=== PATIENT | male | born 1985 | race Two or more races ===

== ENCOUNTER 2019-11-13 23:27 | Inpatient (IN) | payer MEDICAID, OTHER ==
[~2019-11-13] VITALS: Ht 165.1 cm; Wt 85.4 kg
[2019-11-14 00:19] LABS: Basophils # (auto) 0.1 10 ^3/uL (0-0.2); Basophils % (auto) 0.7 % (0.0-2.0); Eosinophils # (auto) 0 10 ^3/uL (0-0.8); Eosinophils % (auto) 0.1 % (0.0-7.0); Hematocrit 50.3 % (41.0-53.0); Hemoglobin 17.1 g/dL (13.5-17.5); Lymphocytes # (auto) 2.3 10 ^3/uL (0.4-5.4); Lymphocytes % (auto) 19.5 % (10.0-50.0); Mean Corpuscular Hemoglobin 30.3 pg (28.0-32.0); Mean Corpuscular Hgb Conc. 34.1 g/dL (32.0-36.0); Mean Corpuscular Volume 88.8 fL (80.0-100.0); Monocytes # (auto) 1.1 10 ^3/uL (0-1.3); Monocytes % (auto) 9.3 % (0.0-12.0); Neutrophils # (auto) 8.3 10 ^3/uL (1.6-8.6); Neutrophils % (auto) 70.4 % (37.0-80.0); Nucleated Red Blood Cells % 0.7 %; Platelet Count (auto) 424 10^3/uL (140-450); Red Blood Cells 5.66 10^6/uL (4.5-5.90); Red Cell Distribution Width 14.1 % (11.8-14.3); White Blood Cell 11.8 10^3/uL (4.4-10.8)
[2019-11-14 00:39] LABS: Albumin 4.4 g/dL (3.4-5.0); BUN/Creatinine Ratio 16.3; Calcium 9.6 mg/dL (8.5-10.1); Potassium 3.7 mmol/L (3.5-5.1)
[2019-11-14 00:44] LABS: Bilirubin, Total 0.8 mg/dL (0.2-1.0); Total Protein 8.8 g/dL (6.4-8.2)
[2019-11-14] MEDS ORDERED: SODIUM CHLORIDE 0.9% 1,000 ML IV ONE (01:00)
[2019-11-14] MEDS ORDERED: ONDANSETRON HCL 4 MG/2 ML VIAL IV ONE (01:00)
[2019-11-14] MEDS ORDERED: MORPHINE SULFATE 4 MG/ML SYR/VIAL IV ONE (01:00)
[2019-11-14] MEDS ORDERED: PANTOPRAZOLE 40 MG/10 ML VIAL INJ IV ONE (01:45)
[2019-11-14] MEDS ORDERED: metroNIDAZOLE 500MG/100ML 100 ML IV ONE (01:45)
[2019-11-14] MEDS ORDERED: cefTRIAXone 1GM/50ML D5W 50 ML IV ONE (01:45)
[2019-11-14] MEDS ORDERED: ACETAMINOPHEN 325 MG TAB PO PRN (02:30)
[2019-11-14] MEDS ORDERED: DOCUSATE SOD 100 MG CAP PO PRN (02:30)
[2019-11-14] MEDS ORDERED: ONDANSETRON HCL 4 MG/2 ML VIAL IV PRN (02:30)
[2019-11-14] MEDS ORDERED: HYDROcodone-ACET 5/325MG TAB PO PRN (02:30)
[2019-11-14] MEDS ORDERED: LORazepam 0.5 MG TAB PO PRN ×2 (02:30→13:45)
[2019-11-14] MEDS ORDERED: MORPHINE SULFATE 4 MG/ML SYR/VIAL IV PRN (02:30)
[2019-11-14] MEDS ORDERED: DEXTROSE (50%) 50ML SYRG IV PRN (02:30)
[2019-11-14 02:31] LABS: Urine Bacteria NONE SEEN /hpf (None Seen); Urine Blood Negative /uL (Negative); Urine Hyaline Cast FEW /lpf (0 - 2); Urine Mucus FEW (None Seen); Urine Specific Gravity 1.037 (1.001-1.035); Urine WBC 1 /hpf (0 - 3)
[2019-11-14 02:49] LABS: Alcohol, Urine < 3.0 mg/dL (0-5); Amphetamine Screen, Urine NEGATIVE (NEGATIVE); Barbiturate Scree,Urine NEGATIVE (NEGATIVE); Benzodiazephine Screen, Urine NEGATIVE (NEGATIVE); Cannabinoid Screen, Urine NEGATIVE (NEGATIVE); Cocaine Screen, Urine NEGATIVE (NEGATIVE); Opiate Scree,Urine NEGATIVE (NEGATIVE); Phencyclidine Screen, Urine NEGATIVE (NEGATIVE)
[2019-11-14] MEDS: InsuLIN REG 1unit/0.01ml Soln (100units/ml) SC SCH ×3 (04:00→11:52)
--- NOTE | 2019-11-14 04:00 | NUR ---
MS admit from ER LIAM GUZMAN admitted to tele/MS. Patient oriented to Radha Kirkland RN primary RN, unit, room, bed, and unit policies regarding patient care and visiting hours. Patient encouraged to call if they need something. Pt. hooked up to low intermittent NG suctioning. Pt. reports no pain and is no distress. Will continue to monitor.
[2019-11-14] MEDS: SODIUM CHLORIDE 0.9% 1,000 ML IV SCH ×3 (04:19→22:23)
[2019-11-14] MEDS: ACCU-CHEK COMFORT CURVE STRIP VI SCH ×3 (04:27→11:52)
[2019-11-14 04:31] VITALS: BP 128/82
[2019-11-14 04:51] VITALS: BP 128/82
--- NOTE | 2019-11-14 07:17 | NUR ---
Opening Shift Note: Assumed care of patient, awake and alert. No S/S of distress/SOB or pain. Patient NPO at this time. NG tube in place at this time, at 50. Low continuous suction. Bed in lowest locked position, side rails up x 2, call light within reach. Patient instructed on POC and to call for assist PRN, will continue to monitor for changes Q1hr and PRN.
[2019-11-14 09:00] VITALS: BP 119/78
[2019-11-14 09:07] LABS: Basophils # (auto) 0 10 ^3/uL (0-0.2); Basophils % (auto) 0.1 % (0.0-2.0); Eosinophils # (auto) 0 10 ^3/uL (0-0.8); Eosinophils % (auto) 0.3 % (0.0-7.0); Hematocrit 44.8 % (41.0-53.0); Hemoglobin 15.1 g/dL (13.5-17.5); Lymphocytes % (auto) 23.6 % (10.0-50.0); Mean Corpuscular Hemoglobin 30.3 pg (28.0-32.0); Mean Corpuscular Hgb Conc. 33.6 g/dL (32.0-36.0); Mean Corpuscular Volume 90.2 fL (80.0-100.0); Monocytes # (auto) 1.2 10 ^3/uL (0-1.3); Monocytes % (auto) 13.5 % (0.0-12.0); Neutrophils # (auto) 5.4 10 ^3/uL (1.6-8.6); Neutrophils % (auto) 62.5 % (37.0-80.0); Nucleated Red Blood Cells % 0.1 %; Platelet Count (auto) 378 10^3/uL (140-450); Red Blood Cells 4.97 10^6/uL (4.5-5.90); Red Cell Distribution Width 14.1 % (11.8-14.3); White Blood Cell 8.6 10^3/uL (4.4-10.8)
[2019-11-14 09:20] LABS: Calcium 8.2 mg/dL (8.5-10.1)
[2019-11-14 09:23] LABS: BUN/Creatinine Ratio 16.5
--- NOTE | 2019-11-14 11:49 | NUR ---
DR ANIL ohara at bedside
[2019-11-14 13:00] VITALS: BP 113/69
[2019-11-14] MEDS: metroNIDAZOLE 500MG/100ML 100 ML IV SCH ×2 (13:42→21:32)
--- NOTE | 2019-11-14 16:04 | NUR ---
Paged Dr. Boss at this time. Patient states "I don't want this tube in me anymore, take it out." Patient educated on need for NG tube at this time. Awaiting call back.
[2019-11-14 17:00] VITALS: BP 129/72
--- NOTE | 2019-11-14 18:38 | NUR ---
Educated patient on need for NG tube and NPO
--- NOTE | 2019-11-14 19:00 | NUR ---
NG tube output 750 ml
--- NOTE | 2019-11-14 19:00 | NUR ---
Opening note Assumed care of patient. Bed in lowest position and locked. Side rails up x 2. No SOB or distress noted. POC reviewed. Patient verbalized understanding. NG tube patent and draining @ LIS. Dark red and brown secretions. Will continue to monitor.
--- NOTE | 2019-11-14 19:03 | NUR ---
CLOSING NOTE: Patient resting in bed. No S/S of pain, distress, or SOB. Care endorsed to NOC RN.
[2019-11-14] MEDS ORDERED: LORazepam 2MG/ML-1ML VIAL IV PRN (19:45)
[2019-11-14 22:00] VITALS: BP 120/74
--- NOTE | 2019-11-15 04:46 | NUR ---
NG tube output Emptied out canister. 700 ml dark brown fluid.
[2019-11-15 05:00] VITALS: BP 119/68
[2019-11-15] MEDS: metroNIDAZOLE 500MG/100ML 100 ML IV SCH (05:17)
[2019-11-15 06:42] LABS: Albumin 3.6 g/dL (3.4-5.0); Calcium 8.5 mg/dL (8.5-10.1); Magnesium 2.4 mg/dL (1.6-2.6); Potassium 3.8 mmol/L (3.5-5.1)
[2019-11-15 06:48] LABS: BUN/Creatinine Ratio 18.3; Bilirubin, Total 0.9 mg/dL (0.2-1.0); Total Protein 7.1 g/dL (6.4-8.2)
--- NOTE | 2019-11-15 07:22 | NUR ---
Opening Shift Note: Assumed care of patient, awake and alert. No S/S of distress/SOB or pain. Patient NPO at this time. NG tube connected to suction, at 50, patient NPO at this time. Bed in lowest locked position, side rails up x 2, call light within reach. Patient instructed on POC and to call for assist PRN, will continue to monitor for changes Q1hr and PRN.
[2019-11-15] MEDS ORDERED: GASTROGRAFIN 120 ML SOL ONE ×2 (08:55→10:37)
[2019-11-15 09:29] VITALS: BP 112/78
[2019-11-15 09:32] LABS: INR 1.07 (0.9-1.15)
--- NOTE | 2019-11-15 10:50 | NUR ---
Patient off unit.
[2019-11-15 13:00] VITALS: BP 142/86
--- NOTE | 2019-11-15 14:00 | NUR ---
Spoke with Dr. Sherwood. Per Patient can have NG tube removed, and is stable.
--- NOTE | 2019-11-15 14:22 | NUR ---
NG tube removed. Patient tolerated well.
--- NOTE | 2019-11-15 14:32 | NUR ---
Nutrition Assessment Notes please see attached link for complete assessment Est. Needs ABW (73 kg): [address] kcal (23-25 kcal/kgBW), 73-80 gms pro (1.0-1.1 gms/kgBW). Will continue to monitor pertinent labs and reassess nutrient need prn Addendum: 11/15/19 at [address] Amended: Links added.
[2019-11-15] MEDS ORDERED: SODIUM CHLORIDE 0.9% 1,000 ML IV SCH (15:00)
--- NOTE | 2019-11-15 16:20 | NUR ---
Patient provided jello and juice. Patient tolerated well.
[2019-11-15 17:09] VITALS: BP 132/80
--- NOTE | 2019-11-15 18:02 | NUR ---
Diet advanced. Patient tolerated well. Will continue to monitor.
[2019-11-15 18:10] VITALS: BP 112/78
--- NOTE | 2019-11-15 21:20 | NUR ---
Discharge instructions given as ordered. Encourage to follow up with PMD as instructed. All questions and concerns addressed. Patient verbalized understanding. Medication reconciliation form completed and copy given to patient. IV removed with catheter intact, pressure dressing applied. Patient ambulated to vehicle with all personal belongings. No distress noted at time of departure.
== END 2019-11-15 21:20 | disposition home or self-care (01) | DRG 247 ==
LOC: EDBD 23:27 → ER 23:27 → OVERFLOW 23:28 → WEST WING 11-14 03:49
PROVIDERS: ADMIT Hospitalist; ATTEND Internal Medicine
PROC: 0D9670Z Drainage of Stomach with Drainage Device, Via Natural or Artificial Opening (ICD-10-PCS; principal; 2019-11-14)
DX: K56.609 Unspecified intestinal obstruction, unspecified as to partial versus complete obstruction (principal); R65.10 Systemic inflammatory response syndrome (SIRS) of non-infectious origin without acute organ dysfunction; K76.0 Fatty (change of) liver, not elsewhere classified; E66.3 Overweight; E78.5 Hyperlipidemia, unspecified; Z90.49 Acquired absence of other specified parts of digestive tract; Z72.89 Other problems related to lifestyle
CPT/HCPCS: 36415; 71045; 74176; 74250; 76705; 80048; 80053; 80061; 80307; 80320; 81001; 82150; 82962; 83036; 83690; 83735; 85025; 85610; 85730; 87040; C9113; G0378; J0696; J2405; J3490